=== PATIENT | male | born 1945 | race Caucasian/White ===

== ENCOUNTER 2017-04-03 14:27 | Inpatient (IN) | payer OTHER ==
[2017-04-03] MEDS ORDERED: ONDANSETRON 4 MG/2 ML VIAL IVP ONE (14:55)
[2017-04-03] MEDS ORDERED: HYDROmorphONE/DILAUDID 1 MG/ML INJ IVP ONE ×2 (14:55→15:51)
[2017-04-03] MEDS ORDERED: NS 1,000 ML IV ONE (14:55)
[2017-04-03 15:29] LABS: % IMMATURE GRANULYOCYTES 0.3 % (0.0-1.1); ABSOLUTE IMMATURE GRANULOCYTES 0.04 10^3/uL (0.00-0.10); ADD DIFF? NO; ADD MORPH? NO; ADD SCAN? NO; ATYPICAL LYMPHOCYTE FLAG 0 (0-99); FRAGMENT RBC FLAG 10 (0-99); HEMATOCRIT 41.7 % (40.0-51.0); HEMOGLOBIN 15.2 g/dL (13.7-17.5); LEFT SHIFT FLG 0 (0-99); LIPEMIA HEMOLYSIS FLAG 90 (0-99); MEAN CELL HEMOGLOBIN 32.1 pg (27.9-34.1); MEAN CELL HEMOGLOBIN CONCENTR. 36.5 g/dL (32.4-36.7); MEAN CELL VOLUME 88.2 fL (81.5-99.8); MEAN PLATELET VOLUME 9.7 fL (8.7-11.7); PLATELET CLUMPS FLAG 0 (0-99); PLATELET COUNT 210 10^3/uL (150-400); RED BLOOD CELL COUNT 4.73 10^6/uL (4.40-6.38); RED CELL DISTRIBUTION WIDTH 12.6 % (11.5-15.2)
[2017-04-03] MEDS ORDERED: HYDROmorphONE/DILAUDID 1 MG/ML INJ ONE (15:47)
[2017-04-03 15:52] LABS: ANION GAP 14 mEq/L (8-16); CARBON DIOXIDE 18 mEq/l (22-31); CHLORIDE 108 mEq/L (97-110); CREATININE 1.1 mg/dL (0.7-1.3); GLOMERULAR FILTRATION RATE > 60; GLUCOSE 149 mg/dL (70-100); POTASSIUM 3.9 mEq/L (3.5-5.2); SODIUM 140 mEq/L (134-144)
[2017-04-03] MEDS ORDERED: KETOROLAC 15 MG/1 ML SDV IVP ONE (15:58)
[2017-04-03 16:17] LABS: COLOR YELLOW; LEUKOCYTE ESTERASE,URINE NEGATIVE (NEGATIVE); NITRITE,URINE NEGATIVE (NEGATIVE)
[2017-04-03 16:24] LABS: BACTERIA TRACE /hpf (NONE SEEN); MUCUS TRACE /lpf (NONE-1+); RBC,URINE 50-182 /hpf (0-3)
--- NOTE | 2017-04-03 16:50 | EDPHY ---
H & P Stated Complaint: Right flank and hematuria since 04/02/17. - Personal History Current Tetanus Diphtheria and Acellular Pertussis (TDAP): Yes - Medical/Surgical History Hx Asthma: No Hx Chronic Respiratory Disease: No Hx Diabetes: No Hx Cardiac Disease: No Hx Renal Disease: No Hx Cirrhosis: No Hx Alcoholism: No Hx HIV/AIDS: No Hx Splenectomy or Spleen Trauma: No Other PMH: Denies - Social History Smoking Status: Never smoked Time Seen by Provider: 04/03/17 14:48 HPI/ROS: Chief complaint: Right flank pain History of present illness: This is a 71-year-old male who presents to the emergency department for right flank pain. Patient reports the onset of symptoms over the last day. Pain is sharp, nonradiating. He denies precipitating factors. He denies alleviating or aggravating factors. He has had associated blood in his urine. No associated fever, no abdominal pain, no nausea, vomiting or diarrhea. He has never had similar. Review of systems: A 10 point review of systems was obtained and other than described above was negative (Onofre Chicas) - Physical Exam Exam: General Appearance: Alert, appears in pain. Eyes: Pupils equal and round no pallor or injection. ENT, Mouth: Mucous membranes moist. Respiratory: There are no retractions, lungs are clear to auscultation. Cardiovascular: Regular rate and rhythm. Gastrointestinal: Abdomen is soft and non tender, no masses, bowel sounds normal. Genitourinary: No CVA tenderness Neurological: Alert and oriented x4. Strength and sensation intact and symmetrical. Skin: Warm and dry, no rashes. Musculoskeletal: Neck is supple non tender. Extremities are symmetrical, full range of motion. Psychiatric: Patient is oriented X 3, there is no agitation. (Onofre Chicas) Constitutional: Initial Vital Signs Temperature (C) 36.8 C 04/03/17 14:29 Heart Rate 61 04/03/17 14:29 Respiratory Rate 18 04/03/17 14:29 Blood Pressure 206/96 H 04/03/17 14:29 O2 Sat (%) 96 04/03/17 14:29 O2 Delivery Mode Room Air Allergies/Adverse Reactions: No Known Allergies Allergy (Unverified 07/09/15 18:11) Home Medications: Medication Instructions Recorded Ibuprofen [Motrin (*)] 400 mg PO Q6H PRN 04/03/17 Medical Decision Making - Diagnostics Imaging: Discussed imaging studies w/ house calls nurse practitioner Radiologist - Diagnostics Imaging Results: Imaging Impressions Abdomen/Pelvis CT 04/03/17 14:56 Impression: 1. Large right renal mass replacing the upper half of the kidney, representing renal cell carcinoma until otherwise proven. 2. It is indeterminate whether the renal vein is thrombosed or involved. There is a moderate amount of hilar inflammation and stranding. 3. Noncalcified pulmonary nodules highly suggestive of metastatic disease. 4. No obvious renal stones or ureteral stones or obstructive uropathy otherwise. 5. Sigmoid diverticulosis. 6. Repeating the study with IV contrast, for chest, abdomen, and pelvis is suggested. Findings and recommendations discussed with Onofre Chicas PA-C at 1633 hour, 04/03. Final report concurs with initial preliminary interpretation. Attention: This examination does not use radiographic contrast, and as such, provides only a limited evaluation of the abdomen, pelvis, and retroperitoneum. If there is further clinical suspicion for pathological conditions, a complete CT evaluation of the abdomen and pelvis utilizing intravenous, oral, and rectal contrast should be considered. Chest CT 04/03/17 16:32 Impression: 1. 2 noncalcified pulmonary nodules in the right lower lobe and left lower lobe as above described, still concerning for metastatic disease given their appearance. 2. Lytic lesion in central T11 that probably represents a hemangioma. Similarly , there is a smaller lesion to the right vertebral body of T5. No definite metastatic bony involvement. Findings and recommendations discussed with Onofre Chicas PA-C at 1800 hour, 04/03. Final report concurs with initial preliminary interpretation. Abdomen CT 04/03/17 16:33 Impression: 1. Large upper pole right renal mass consistent with renal cell carcinoma. 2. Delayed excretion from the right kidney, likely due to edema. 3. The edema may be caused by a combination of two factors: Lack of excretion out of the right renal collecting system, and narrowing of the right draining renal vein. 4. No evidence for tumor invasion into the renal vein or IVC. 5. Tumor invasion into the collecting system is not excluded. 6. No evidence for significant adenopathy. No bony metastasis is evident on this study. Findings and recommendations discussed with Onofre Chicas PA-C at 1800 hour, . Final report concurs with initial preliminary interpretation. ED Course/Re-evaluation: The patient is seen in conjunction with my secondary supervising physician Dr. Pratima May. Patient presents to the emergency department with right flank pain and hematuria. Pain is controlled with Dilaudid and Toradol. Ultimately CT scan is concerning for a renal cancer with possible renal vein thrombosis, questionable lymphadenopathy and possible metastasis to the lungs. Patient will be admitted to the hospitalist service by Dr. Pasha Mckeon. I have also consulted Hematology/Oncology Dr. Aguilar. We will pursue a CT of the chest/abdomen/pelvis with IV contrast to further evaluate. The plan has been discussed with the patient who voiced understanding and agreement with it. ( Onofre Chicas) Differential Diagnosis: Included but not limited to urinary tract infection, kidney stone, malignancy, colitis, appendicitis, diverticulitis (Onofre Chicas) Other Provider: I have evaluated and participated in the management of this patient. My co- signature indicates that I have reviewed this chart and that I agree with the findings and the plan of care as documented. My personal history and physical findings include: 71-year-old male with hematuria and back pain who was referred to the emergency department by his primary care physician, Dr. Arango. On exam is lungs are clear, heart is regular rate and rhythm, abdomen is soft, nontender, nondistended. No palpable masses. Imaging reveals a renal mass suspicious for renal cell carcinoma. Chest CT reveals pulmonary nodule suspicious for metastatic disease. I reviewed the imaging. I spoke with the patient and his about these findings. He is being admitted for further evaluation and possible biopsy of the pulmonary nodules. (Pratima May) - Data Points Laboratory Results: Laboratory Results 04/03/17 15:14 04/03/17 15:14 04/03/17 04/03/17 04/03/17 16:08 15:14 15:14 WBC 13.19 10^3/uL H 10^3/uL (3.80-9.50) RBC 4.73 10^6/uL 10^6/uL (4.40-6.38) Hgb 15.2 g/dL g/dL (13.7-17.5) Hct 41.7 % % (40.0-51.0) MCV 88.2 fL fL (81.5-99.8) MCH 32.1 pg pg (27.9-34.1) MCHC 36.5 g/dL g/dL (32.4-36.7) RDW 12.6 % % (11.5-15.2) Plt Count 210 10^3/uL 10^3/uL (150-400) MPV 9.7 fL fL (8.7-11.7) Neut % (Auto) 83.9 % H % (39.3-74.2) Lymph % (Auto) 8.3 % L % (15.0-45.0) D[place]y % (Auto) 7.1 % % (4.5-13.0) Eos % (Auto) 0.2 % L % (0.6-7.6) Baso % (Auto) 0.2 % L % (0.3-1.7) Nucleat RBC Rel Count 0.0 % % (0.0-0.2) Absolute Neuts (auto) 11.05 10^3/uL H 10^3/uL (1.70-6.50) Absolute Lymphs (auto) 1.10 10^3/uL 10^3/uL (1.00-3.00) Absolute Monos (auto) 0.94 10^3/uL H 10^3/uL (0.30-0.80) Absolute Eos (auto) 0.03 10^3/uL 10^3/uL (0.03-0.40) Absolute Basos (auto) 0.03 10^3/uL 10^3/uL (0.02-0.10) Absolute Nucleated RBC 0.00 10^3/uL 10^3/uL (0-0.01) Immature Gran % 0.3 % % (0.0-1.1) Immature Gran # 0.04 10^3/uL 10^3/uL (0.00-0.10) Sodium 140 mEq/L mEq/L (134-144) Potassium 3.9 mEq/L mEq/L (3.5-5.2) Chloride 108 mEq/L mEq/L (97-110) Carbon Dioxide 18 mEq/l L mEq/l (22-31) Anion Gap 14 mEq/L mEq/L (8-16) BUN 21 mg/dL mg/dL (7-23) Creatinine 1.1 mg/dL mg/dL (0.7-1.3) Estimated GFR > 60 Glucose 149 mg/dL H mg/dL (70-100) Calcium 10.0 mg/dL mg/dL (8.5-10.4) Urine Color YELLOW Urine Appearance HAZY Urine pH 8.0 H (5.0-7.5) Ur Specific [place] 1.012 (1.002-1.030) Urine Protein NEGATIVE (NEGATIVE) Urine Ketones NEGATIVE (NEGATIVE) Urine Blood 3+ H (NEGATIVE) Urine Nitrate NEGATIVE (NEGATIVE) Urine Bilirubin NEGATIVE (NEGATIVE) Urine Urobilinogen NEGATIVE EU EU (0.2-1.0) Ur Leukocyte Esterase NEGATIVE (NEGATIVE) Urine RBC 50-182 /hpf H /hpf (0-3) Urine WBC 3-5 /hpf H /hpf (0-3) Ur Epithelial Cells NONE SEEN /lpf /lpf (NONE-1+) Urine Bacteria TRACE /hpf H /hpf (NONE SEEN) Urine Mucus TRACE /lpf /lpf (NONE-1+) Urine Glucose NEGATIVE (NEGATIVE) Medications Given: Melatonin (Melatonin) 6 mg PO HS [facility] Stop: 09/30/17 20:59 Last Admin: 04/03/17 21:15 Dose: 6 mg Discontinued Medications Hydromorphone HCl (Dilaudid) 0.5 mg IVP EDNOW ONE Stop: 04/03/17 14:56 Last Admin: 04/03/17 15:04 Dose: 0.5 mg Hydromorphone HCl (Dilaudid) 1 mg IVP EDNOW ONE Stop: 04/03/17 15:52 Last Admin: 04/03/17 15:51 Dose: 1 mg Sodium Chloride (Ns) 1,000 mls @ 0 mls/hr IV EDNOW ONE; Wide Open PRN Reason: Protocol Stop: 04/03/17 14:56 Last Admin: 04/03/17 15:04 Dose: 1,000 mls Ketorolac Tromethamine (Toradol) 15 mg IVP EDNOW ONE Stop: 04/03/17 15:59 Last Admin: 04/03/17 16:30 Dose: 15 mg Ondansetron HCl (Zofran) 4 mg IVP EDNOW ONE Stop: 04/03/17 14:56 Last Admin: 04/03/17 15:04 Dose: 4 mg Departure - Departure Disposition: Home, Routine, Self-Care Clinical Impression: Renal cancer Qualifiers: Laterality: right Qualified Code(s): C64.1 - Malignant neoplasm of right kidney , except renal pelvis Condition: Fair
[2017-04-03] MEDS ORDERED: IOPAMIDOL (ISOVUE-300) 100 ML BTL ONE (16:53)
[2017-04-03] MEDS ORDERED: ONDANSETRON 4 MG/2 ML VIAL IVP PRN (20:11)
[2017-04-03] MEDS ORDERED: ACETAMINOPHEN 325 MG TAB PO PRN (20:11)
[2017-04-03] MEDS ORDERED: IBUPROFEN 200 MG TAB PO PRN (20:13)
[2017-04-03] MEDS ORDERED: HYDROmorphone HCL/NS/PF 0.4 MG/2 ML SYR IVP PRN (20:17)
[2017-04-03] MEDS ORDERED: TEMAZEPAM 15 MG CAP PO PRN (20:17)
[2017-04-03] MEDS ORDERED: MELATONIN 3 MG TAB PO SCH (21:00)
[2017-04-03] MEDS: MELATONIN 3 MG TAB PO SCH (21:15)
--- NOTE | 2017-04-03 21:41 | GHP ---
[f rep st] HISTORY AND PHYSICAL DATE OF ADMISSION: 04/03/2017 CHIEF COMPLAINT: Hematuria and right flank pain. HISTORY OF PRESENT ILLNESS: A 71-year-old man who saw his primary care physician today for hematuria . It has also been associated with some intermittent right flank pain. He also describes some back pain which has been present for a few months, began 8 months ago. It was diagnosed as a musculoskele anna strain. He does not smoke though he does occasionally smoke marijuana. PAST MEDICAL/SURGICAL HISTORY: 1. Musculoskeletal pain. 2. Pectus excavatum, status post surgery. MEDICATIONS: Please see medication reconciliation. ALLERGIES: No known drug allergies. FAMILY HISTORY: No cancer. He does have heart disease in his history. SOCIAL HISTORY: He occasionally smokes marijuana. 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 REVIEW OF SYSTEMS: A 10-point review of systems is conducted and is negative except per HPI. PHYSICAL EXAMINATION: VITAL SIGNS: Blood pressure 157/84, heart rate 75, respiration rate 18, satur ating 93% on room air. Temperature is 36.3. GENERAL: The patient is a pleasant man who is resting comfortably in no acute distress. HEENT: Normocephalic, atraumatic. CARDIOVASCULAR: Regular rate and rhythm. No murmurs, rubs, or gallops. PULMONARY: Lungs clear to auscultation bilaterally. ABD OMEN: Soft, nontender, nondistended. He does have a midline incision. SKIN: No rash. GENITOURINA RY: No Navarro. NEUROLOGIC: Examination shows him to be alert and oriented x3. He is moving all ext remities. PSYCHIATRIC: Normal mood and affect. LABORATORY DATA: Bicarb is 18, urinalysis shows 3+ blood. White count is 13.19. DATA: 1. I discussed this with Onofre Chicas. 2. I reviewed his abdomen CT and chest CT. There were some pulmonary nodules concerning for metasta tic disease. He does have a lesion on his right kidney concerning for renal cell carcinoma. IMPRESSION AND PLAN: This is a 71-year-old man with likely new diagnosis of renal cell carcinoma: I have discussed this diagnosis with him. I think he likely needs a biopsy of the pulmonary nodules t o determine stage and thus guide treatment. I have placed a call to Dr. Aguilar (who has previously been consulted by the emergency department) to discuss possible CT-guided biopsy of one of these nod ules. They are small and may be difficult to biopsy, however. I have not heard back, however, if mehran mejia is in agreement with this. I will order a biopsy. Otherwise she will consult and help guide treat ment. I did have a long discussion with both him as well and regarding the different potential treat ment courses. /[id number]/MODL
[2017-04-04 06:09] LABS: % IMMATURE GRANULYOCYTES 0.6 % (0.0-1.1); ABSOLUTE IMMATURE GRANULOCYTES 0.09 10^3/uL (0.00-0.10); ADD DIFF? NO; ADD MORPH? NO; ADD SCAN? NO; ATYPICAL LYMPHOCYTE FLAG 0 (0-99); FRAGMENT RBC FLAG 0 (0-99); HEMATOCRIT 42.9 % (40.0-51.0); HEMOGLOBIN 14.9 g/dL (13.7-17.5); LEFT SHIFT FLG 0 (0-99); LIPEMIA HEMOLYSIS FLAG 90 (0-99); MEAN CELL HEMOGLOBIN 31.8 pg (27.9-34.1); MEAN CELL HEMOGLOBIN CONCENTR. 34.7 g/dL (32.4-36.7); MEAN CELL VOLUME 91.7 fL (81.5-99.8); MEAN PLATELET VOLUME 9.8 fL (8.7-11.7); PLATELET CLUMPS FLAG 0 (0-99); PLATELET COUNT 188 10^3/uL (150-400); RED BLOOD CELL COUNT 4.68 10^6/uL (4.40-6.38); RED CELL DISTRIBUTION WIDTH 12.8 % (11.5-15.2)
[2017-04-04 06:18] LABS: ALANINE AMINOTRANSFERASE 32 IU/L (21-72); ALBUMIN 3.8 g/dL (3.5-5.0); ALKALINE PHOSPHATASE 70 IU/L (38-126); ANION GAP 13 mEq/L (8-16); ASPARTATE AMINOTRANSFERASE 27 IU/L (17-59); BILIRUBIN,TOTAL 0.8 mg/dL (0.1-1.4); CALCIUM 9.4 mg/dL (8.5-10.4); CARBON DIOXIDE 21 mEq/l (22-31); CHLORIDE 106 mEq/L (97-110); CREATININE 1.2 mg/dL (0.7-1.3); GLOMERULAR FILTRATION RATE 60; GLUCOSE 109 mg/dL (70-100); LACTATE DEHYDROGENASE 630 IU/L (313-618); POTASSIUM 4.1 mEq/L (3.5-5.2); SODIUM 140 mEq/L (134-144); TOTAL PROTEIN 6.3 g/dL (6.3-8.2)
[2017-04-04] MEDS: oxyCODONE IR 5 MG TAB PO PRN ×2 (08:39→14:16)
[2017-04-04 08:40] LABS: PLATELET COUNT 184 10^3/uL (150-400)
[2017-04-04 08:57] LABS: INR 1.06 (0.83-1.16); PROTIME(PATIENT) 13.7 SEC (12.0-15.0)
[2017-04-04 08:58] LABS: APTT 28.8 SEC (23.0-38.0); FIBRINOGEN 432 mg/dL (214-456)
[2017-04-04] MEDS ORDERED: MAGNESIUM HYDROXIDE 30 ML UDCUP PO PRN (12:34)
[2017-04-04] MEDS: SENNOSIDES/DOCUSATE SODIUM TAB PO SCH (13:02)
--- NOTE | 2017-04-04 14:07 | HOSPPROG ---
Hospitalist Progress Note Assessment/Plan: This 71-year-old male presenting with hematuria and right flank pain found to have # suspected right renal cell carcinoma # pulmonary nodules too small to biopsy per Dr. Martin Plan: -discussed case with Dr. Aguilar who is on-call for oncology [place] see the patient later today. I also have a call into Dr. Palacio from Urology to discuss nephrectomy. Will change to inpatient status given you will not need further hospitalization for nephrectomy. DVT prophylaxis is contraindicated in light of his hematuria Subjective: Flank pain is controlled with oxycodone. His hematuria is improving. he denies any other acute complaints Objective: Vital Signs Temp Pulse Resp BP Pulse Ox 36.8 C 83 18 171/102 H 96 04/04/17 12:55 04/04/17 12:55 04/04/17 12:55 04/04/17 12:55 04/04/17 12:55 Laboratory Results 04/04/17 08:13 04/04/17 05:35 PT 13.7 SEC (12.0-15.0) 04/04/17 08:13 INR 1.06 (0.83-1.16) 04/04/17 08:13 - Physical Exam Constitutional: no apparent distress, appears nourished, not in pain Ears, Nose, Mouth, Throat: moist mucous membranes, hearing normal, ears appear normal, no oral mucosal ulcers Cardiovascular: regular rate and rhythym, no murmur, rub, or gallop Respiratory: no respiratory distress, no rales or rhonchi, clear to auscultation ICD10 Worksheet Patient Problems: Problems Problem Status Onset Renal cancer Acute
[2017-04-04] MEDS: ONDANSETRON DISINTEGRATING 4 MG TAB PO PRN ×2 (14:15→21:35)
--- NOTE | 2017-04-04 14:23 | PDMN ---
Medical Necessity Medical necessity: change to IP; los>2mn for suspected R renal cell CA and small pulmonary nodules; requires onc and urology consults, further hospitalization for nephrectomy; per order and H&P 04/04/17
--- NOTE | 2017-04-04 14:50 | GCON ---
[f rep st] CONSULTATION NEW PATIENT CONSULTATION. DATE OF CONSULTATION: 04/04/2017 REFERRING PHYSICIAN: Gal Webber DO REASON FOR CONSULTATION: Hematuria, right flank pain and discovery of a right renal mass. HISTORY OF PRESENT ILLNESS: The patient is a 71-year-old gentleman in relatively good health, who wa s seen by his primary care physician yesterday for right flank pain and hematuria. He reports that jak mejia had some hematuria a couple of months ago but this disappeared but he started having persistent hem aturia for the last 3 days. After he started to experience some flank pain, which was unremitting, jak mejia presented to his primary care physician's office. He was sent for imaging and had an abdomen/pelvi s CT done yesterday on 04/03/2017. I have reviewed the images myself which showed a large renal mass replacing the upper half of the kidney, 9.2 cm in its greatest dimension. Radiographically, this re presents renal cell carcinoma until otherwise proven. Indeterminate whether the renal vein was throm bosed or involved. There was a moderate amount of hilar inflammation and stranding. He has noncalcif ied pulmonary nodules, highly suggestive of metastatic disease but overall, these are few and very sm all. No obvious other metastatic disease was noted. Bones appear normal for patient's age. The patient reports some musculoskeletal pain under his right scapula from a few months ago but other amado denies any new issues. REVIEW OF SYSTEMS: As per HPI. Otherwise, denies any significant weight loss, nausea, vomiting, con stipation, diarrhea. Denies neurologic symptoms. He denies bone pain, just has muscular strain as de scribed above. PAST MEDICAL HISTORY: 1. Musculoskeletal pain under right scapula. 2. Pectus excavatum status post surgery. MEDICATIONS: Reviewed med rec. ALLERGIES: Reviewed med rec. FAMILY HISTORY: No cancer, heart disease in family. SOCIAL HISTORY: He occasionally smokes marijuana. He develops next generation internet tools. PHYSICAL EXAM: VITAL SIGNS: Today, shows a blood pressure 171/102, his pulse is 83, respiration rat e 18, O2 saturation 96% on room air. The temperature is 36.8. GENERAL: A 71-year-old gentleman, lo oks younger than his stated age, not in acute distress. HEENT: Anicteric, oropharynx is clear. Willian e poor dentition. HEART: Regular rate and rhythm. LUNGS: Clear to auscultation bilaterally. ABDO MEN: Somewhat soft. He does have some guarding on the right with possible right-sided mass. His kennedy er is not enlarged. Bowel sounds are positive. Right flank also feel a fullness. LOWER EXTREMITIES : No edema. LABS: White blood cell count 14.2, hemoglobin 14.9, hematocrit 42.9, platelet count of a 188,000. C oags are within normal limits. Sodium 140, BUN 20, creatinine 1.2, total bilirubin 0.8, LDH is eleva sharon at 630. His urinalysis shows 3+ blood, trace bacteria. ASSESSMENT AND PLAN: A 71-year-old gentleman with the above-mentioned past medical history, now pres enting with what appears to be renal cell carcinoma of the right upper kidney. CT chest demonstrates some very small noncalcified pulmonary nodules. At this time, he has no other evidence of metastati c disease. Today, I spent the majority of time going over patient's imaging, potential diagnosis and prognosis. It does appear that he is a stage IV disease. I would recommend a bone scan and a brain MRI to comp lete his imaging. I am not inclined to order a PET-CT as urothelial carcinoma, tends to not demonstr ate significant PET avidity. At this point, I do think he demonstrates a need for cytoreductive neph rectomy given the pain and hematuria he is experiencing and the relatively small amount of distant di sease. I plan to discuss with Radiology the number and size of the pulmonary nodules that are noted although I only see a couple. He may be a candidate for ablative techniques to the lung lesions and then first-line therapy for kidney cancer. If the number of pulmonary nodules are too great and it i s felt that toxicity would be too much with treatment of radiation or surgery to these areas, could c ertainly start him on first line tyrosine kinase inhibitor status post nephrectomy. The patient does have some high risk features including high white blood cell count as well as elevated LDH. Urology consult has been placed and will order bone scan and MRI brain today to complete staging. Onc e we get tissue confirmation, can move forward with further treatment recommendations /[id number]/MODL
[2017-04-04] MEDS ORDERED: GADOBUTROL 10 ML VIAL IVP ONE (15:14)
--- NOTE | 2017-04-04 16:31 | ASMTCASEMG ---
Living Arrangements What is your living Answers: Alone arrangement? Who do you live with? Type Of Residence What kind of residence do Answers: House you live in? Stairs in Home Answers: Yes Environment Case Management Evaluation Functional: Able to Answers: No Notes: nephrectomy return Home with Prior Level of Function/Care Discharge Plan Comments Coordination Status Comments Notes: Spoke with patient to talk about his feelings and plans regarding his new diagnosis of kidney cancer. He said that he thought he had a kidney stone when he went to the docitor yesterday. He said that he had pain last night that was in his experience an 11 out of 10. He said he is anxious to talk with Dr. Arevalo to have some idea of what lies ahead. This C/M told him that we will be here to support him and help him to navigate the systems as he is more clear about what his needs may be. Case Management will follow. Date Signed: 04/04/2017 04:30 PM Electronically Signed By:BUZZ Carrera
--- NOTE | 2017-04-04 17:29 | SOAPPROG ---
PATEL Progress Note Assessment/Plan: Assessment:Renal cancer Acute reviewed CAT scan and suggest nephrectomy. Plan: will see if desired, reviewed CAT with pt 04/04/17 17:29 Subjective: discussed renal mass Objective: Vital Signs Temp Pulse Resp BP Pulse Ox 36.7 C 78 18 152/89 H 95 04/04/17 17:01 04/04/17 17:01 04/04/17 17:01 04/04/17 17:01 04/04/17 17:01 04/03/17 04/04/17 04/05/17 05:59 05:59 05:59 Intake Total 700 Balance 700 PT 13.7 SEC (12.0-15.0) 04/04/17 08:13 INR 1.06 (0.83-1.16) 04/04/17 08:13 Physical Exam - Physical Exam General Appearance: alert ICD10 Worksheet Patient Problems: Problems Problem Status Onset Renal cancer Acute
[2017-04-04] MEDS: MELATONIN 3 MG TAB PO SCH (21:24)
--- NOTE | 2017-04-05 00:48 | SOAPPROG ---
SOAP Progress Note Assessment/Plan: Assessment: 1. ~ 9 cm right upper pole posterior enhancing right renal mass. 2. Recent gross hematuria and right flank pain: most likely due to recent bleeding from renal mass. Plan: 1. Medical management for his intermittent right flank pain. 2. Arrangements will be made for open right radical nephrectomy in the near future, hopefully next week. In the meantime, he can be discharged on oral narcotics once deemed appropriate by the hospitalist service. My office will coordinate surgery scheduling with the patient by phone. See full dictated consult note (#[id number]). Objective: Vital Signs Temp Pulse Resp BP Pulse Ox 36.9 C 81 16 162/92 H 92 04/04/17 19:48 04/04/17 19:48 04/04/17 19:48 04/04/17 19:48 04/04/17 19:48 04/03/17 04/04/17 04/05/17 05:59 05:59 05:59 Intake Total 700 Balance 700 PT 13.7 SEC (12.0-15.0) 04/04/17 08:13 INR 1.06 (0.83-1.16) 04/04/17 08:13 ICD10 Worksheet Patient Problems: Problems Problem Status Onset Renal cancer Acute
[2017-04-05] MEDS: oxyCODONE IR 5 MG TAB PO PRN ×4 (04:42→16:10)
--- NOTE | 2017-04-05 06:24 | GCON ---
[f rep st] CONSULTATION UROLOGY CONSULTATION DATE OF CONSULTATION: 04/04/2017 REFERRING PHYSICIAN: Hospitalist Service REASON FOR CONSULTATION: Large abnormal right renal mass. HISTORY: This is a 71-year-old gentleman who started experiencing gross hematuria on this past Monday that not long afterwards was associated with severe right-sided flank pain. The flank pain was intermittent thereafter but persisted to the point that he presented to the emergency room on Monday afternoon. Noncontrast CT scan was initially performed, which revealed evidence suggestive of a right renal mass. This was confirmed on subsequent contrast CT scan. The patient was admitted for further management thereafter. Since admission, the patient has had intermittent episodes of right-sided flank pain that have been fairly well controlled with narcotics. His frequency and intensity of pain have been diminishing over the day today. He denies any associated fevers, flu-like symptoms, dysuria, prior gross hematuria, nor prior history of urinary tract infections. PAST MEDICAL HISTORY: Healthy. PAST SURGICAL HISTORY: Bilateral laparoscopic inguinal herniorrhaphy 2015, pectus excavatum repair many years ago. ADMISSION MEDICATION: Ibuprofen p.r.n. MEDICATION ALLERGIES: None known. FAMILY HISTORY: Not contributory. SOCIAL HISTORY: The patient is single and lives in the [facility]. He denies use of cigarettes or alcohol. He does smoke marijuana periodically. REVIEW OF SYSTEMS: He has been dealing with upper back pain, just below the cervical region, for the last several months, for which he has been receiving physical therapy. Otherwise unremarkable, other than mentioned above in the HPI and Past Medical History. PHYSICAL EXAMINATION: GENERAL: Well-developed, well-nourished white male lying supine in bed in no acute distress presently. VITAL SIGNS: Blood pressure 162/92, heart rate 81, respiratory rate 16, oxygen saturations 92% on room air, temperature 36.9 Celsius. Height 175 cm, weight 77 kg, BMI 25. HEENT : Normocephalic, atraumatic. NECK: Supple. HEART: Regular rate. CHEST: Unlabored respiratory pattern. ABDOMEN: Some fullness noted in the right upper quadrant. No evidence of significant tenderness. BACK: No flank tenderness on percussion. GENITALIA: Circumcised phallus with normal meatus in the proper position. Scrotal structures are unremarkable. EXTREMITIES: Warm without cyanosis, clubbing, nor edema. NEUROLOGICAL: He is alert and oriented. He answers all questions appropriately with normal mood and affect. VASCULAR: Normal femoral, dorsalis pedis, and posterior tibial pulses bilaterally. RADIOGRAPHIC STUDIES: Iodinated abdominopelvic CT scan: Upon my review, notable for an approximately 9 x 6 x 9 cm long right posterior upper-pole enhancing renal mass that is heterogeneous with central necrosis, no obvious perihilar adenopathy, no obvious renal vein or IVC thrombosis, no liver abnormalities appreciated. Chest CT: By report, notable for two pulmonary nodules, one measuring approximately 7 mm in the right lower lobe and another measuring approximately 10 mm in the left lower lobe. These are noncalcified. Brain MRI: By report, no evidence of metastatic disease. LABORATORY: 04/04 chemistry panel is essentially normal. Liver function tests are also normal. 04/04 INR 1.0. 04/04 CBC notable for white blood cell count 14 ,000; otherwise, normal. 04/03 urinalysis notable for 50-182 red blood cells per high-power field, otherwise unremarkable. IMPRESSION: 1. Sizeable enhancing heterogeneous right renal mass: Worrisome for renal cancer. 2. Gross hematuria with associated right flank pain: Gross hematuria is most likely related to bleeding from the tumor. Flank pain is likely as a result of clot passage with transient obstruction within the right ureter. There is also a possibility the right flank pain could be related to hemorrhage within the tumor. I had an extensive discussion with the patient today regarding his radiographic findings, specifically the renal mass. The high probability of cancer was discussed with the patient. It is possible he might have pulmonary metastatic disease, although these lesions are too small to definitively characterize and not amenable to percutaneous biopsy at this time. All aspects regarding therapeutic and diagnostic radical nephrectomy were reviewed in detail as well. Surgical approaches, open versus laparoscopic/robotic, were reviewed in detail as well. All of the patient's questions were answered to his apparent satisfaction. PLAN: 1. Continue analgesics and/or ibuprofen for pain control p.r.n. Avoid any anticoagulants. 2. The patient may be discharged whenever deemed appropriate by the hospitalist service. He is apparently scheduled for a whole-body bone scan on Monday. 3. My office will contact the patient and arrange for right open radical nephrectomy as soon as possible. Based on the size of this tumor, I do not believe it is ideally amenable to robotic nephrectomy. Thank you for this consultation. /[id number]/MODL MTDD
[2017-04-05] MEDS: SENNOSIDES/DOCUSATE SODIUM TAB PO SCH (07:51)
--- NOTE | 2017-04-05 11:16 | SOAPPROG ---
SOAP Progress Note Assessment/Plan: Assessment/Plan: 71 yo man admitted w flank pain and hematuria CT imaging demonstrates large R sided kidney mass, likely RCC Also w small pulmonary nodules concerning for mets but too small to biospy ir characterize further Appreciate Dr Palacio - plan for R nephrectomy next week Even if metastatic dz, optimal candidate for cytoreductive nephrectomy Once have final path, can make further recommendations Consider following lung nodules vs ablative therapies MRI brain negative Bone scan pending today Will arrange follow up w [facility] doc in 1-2 weeks 04/05/17 11:14 Subjective: No acute events Objective: Vital Signs Temp Pulse Resp BP Pulse Ox 36.6 C 81 18 164/100 H 94 04/05/17 07:57 04/05/17 07:57 04/05/17 07:57 04/05/17 09:44 04/05/17 07:57 04/04/17 04/05/17 04/06/17 05:59 05:59 05:59 Intake Total 700 Balance 700 PT 13.7 SEC (12.0-15.0) 04/04/17 08:13 INR 1.06 (0.83-1.16) 04/04/17 08:13 Gen - NAD HEENT - anicteric CV - RRR Chest - CTAB Ext - no edema ICD10 Worksheet Patient Problems: Problems Problem Status Onset Renal cancer Acute
[2017-04-05 11:26] VITALS: BP 157/92; PULSE 87; RESP 14; TEMP 98.7; O2SAT 92
--- NOTE | 2017-04-05 16:45 | ASMTCMCOM ---
CM Note CM Note Notes: Pt to DC home today. Plan is to f/u with [facility] Oncologist and to have a nephrectomy with Dr Ramos next week. Ta;led with pt and his about adjustment to diagnosis. Discussing talking with his employer and telling friends and family. Let pt know anout resources such as support groups and integrative therapy. Made a red lipstick request for pt. Date Signed: 04/05/2017 04:45 PM Electronically Signed By:Gayathri Vaughan LCSW
--- NOTE | 2017-04-06 00:12 | GDS ---
[f rep st] DISCHARGE SUMMARY DISCHARGE DIAGNOSES: 1. Right flank pain. Found to have a right-sided kidney mass, most likely due to renal cell carcino ma. 2. Small pulmonary nodules. CONSULTANTS: 1. Dr. Farrah Aguilar, Oncology. 2. Dr. Padmini Palacio, Urology. HOSPITAL COURSE AND STAY BY PROBLEM: Flank pain: The patient presented to the hospital with flank p ain where he was found to have a large right renal mass which was thought to most likely represent a renal cell carcinoma. He was seen by Dr. Aguilar who ordered a brain MRI that was negative for mass . Initially in the ER, he had a CT of the abdomen and pelvis. The chest CT did show some small pulm onary nodules which were not amenable to biopsy per Dr. Martin. On date of discharge, the bone scan had been done and is currently pending. On hospital day #1, Dr. Palacio was consulted from Urology. He is recommending open nephrectomy which will be done later next week. PHYSICAL EXAM: VITAL SIGNS: On day of discharge, blood pressure 137/92, pulse of 87, respiratory ra te 14, O2 saturation 92% on room air. Temperature afebrile. GENERAL: No acute distress. He does n ot appear to be in pain. PERTINENT LABS AND STUDIES DONE: Bone scan done 04/05/2017, results are pending. Brain MRI done , refer to report. CT of the chest, abdomen, and pelvis done 04/03/2017, refer to report. DISCHARGE MEDICATIONS: Please refer to discharge medication reconciliation in [facility] for full deta ils. Below is a preliminary list: Oxycodone 5-10 mg p.o. q.4-6 hours p.r.n. pain; [id number] Tylenol to be used as directed; Seno jeannie-S 1-2 tabs p.o. daily. DISCHARGE INSTRUCTIONS: The patient will be discharged from the hospital where he should follow up w emerald Aguilar at Oncology as well as with Dr. Palacio as scheduled. /[id number]/MODL
--- NOTE | 2017-04-06 09:12 | ASDISCHSUM ---
Discharge Information Plan Status:Has needs-TBD Medically Cleared to Leave: Discharge Date:04/05/2017 04:45 PM CM D/C Disposition: ADT D/C Disposition:Home, Routine, Self-Care Projected Discharge Date:04/05/2017 04:45 PM Transportation at D/C: Discharge Delay Reason: Follow-Up Date:04/05/2017 04:45 PM Discharge Slot: Final Diagnosis: Placement Information Patient Contact Information Contact Name:SHERIN Relationship:Other Address: Work Phone: [facility]: [facility] Phone: State/Zip Code: Email: Financial Information Financial Class: Primary Plan Desc:MEDICARE INPATIENT Primary Plan Number:[id number] Secondary Plan Desc:[facility] Secondary Plan Number:[id number] Assessment Information [facility] Initial CM Assessment Living Arrangements What is your living Answers: Alone arrangement? Who do you live with? Type Of Residence What kind of residence do Answers: House you live in? Stairs in Home Answers: Yes Environment Case Management Evaluation Functional: Able to Answers: No Notes: nephrectomy return Home with Prior Level of Function/Care Discharge Plan Comments Coordination Status Comments Notes: Spoke with patient to talk about his feelings and plans regarding his new diagnosis of kidney cancer. He said that he thought he had a kidney stone when he went to the [facility] yesterday. He said that he had pain last night that was in his experience an 11 out of 10. He said he is anxious to talk with Dr. Arevalo to have some idea of what lies ahead. This C/M told him that we will be here to support him and help him to navigate the systems as he is more clear about what his needs may be. Case Management will follow. Date Signed: 04/04/2017 04:30 PM Electronically Signed By:BUZZ Carrera [facility] CM Progress Note CM Note CM Note Notes: Pt to DC home today. Plan is to f/u with [facility] Oncologist and to have a nephrectomy with Dr Ramos next week. Ta;led with pt and his about adjustment to diagnosis. Discussing talking with his employer and telling friends and family. Let pt know anout resources such as support groups and integrative therapy. Made a red lipstick request for pt. Date Signed: 04/05/2017 04:45 PM Electronically Signed By:Gayathri Vaughan LCSW Intervention Information Intervention Type:*Incorrect Registration Date of Service:04/04/2017 10:35 AM Patient Type:Inpatient Staff Member:TITO Cantu, Shantelle Hours: Discipline: Severity: Comment: Intervention Type:*Occurence 72 Date of Service:04/03/2017 06:15 PM Patient Type:Inpatient Staff Member:TITO Montejo, Katarzyna Hours: Discipline: Severity: Comment:
== END 2017-04-05 16:45 | disposition home or self-care (01) | DRG 688 ==
LOC: INTOOBSV 17:06 → F1N 18:24 → OBSVTOIN 04-04 14:08
PROVIDERS: ADMIT Student in an Organized Health Care Education/Training Program; ATTEND Student in an Organized Health Care Education/Training Program
DX: C64.1 Malignant neoplasm of right kidney, except renal pelvis (principal); R91.8 Other nonspecific abnormal finding of lung field
CPT/HCPCS: 96374; A9503; A9585; G0378; J1170; J1885; J2405; Q9967

== ENCOUNTER 2017-04-10 14:00 | Inpatient (IN) | payer OTHER ==
[2017-04-13] MEDS ORDERED: ceFAZolin 2 GM/DEXTROSE 100 ML IV ONE (09:54)
[2017-04-13] MEDS ORDERED: LR 1,000 ML IV ONE (10:02)
[2017-04-13] MEDS ORDERED: fentaNYL 250 MCG/5 ML INJ ONE (10:21)
[2017-04-13] MEDS ORDERED: PROPOFOL 200 MG/20 ML VIAL ONE (10:21)
[2017-04-13] MEDS ORDERED: MIDAZOLAM 2 MG/2 ML VIAL ONE (10:21)
[2017-04-13] MEDS ORDERED: LIDOCAINE 2% 5 ML SDV ONE (10:26)
[2017-04-13] MEDS ORDERED: ROCURONIUM 100 MG/10 ML VIAL ONE (10:28)
[2017-04-13] MEDS ORDERED: BUPIVACAINE 0.25% 30 ML SDV ONE ×2 (10:31→15:52)
--- NOTE | 2017-04-13 10:31 | PDHPUP ---
History & Physical Update H&P update statement: This history and physical update is based on an assessment of the patient which was completed after admission or registration (within 24 hours), but prior to the surgery/procedure. H&P update: no change in patient's condition since H&P completed
[2017-04-13] MEDS ORDERED: MANNITOL 20% 100 GM/500 ML BAG IV ONE (10:51)
[2017-04-13] MEDS ORDERED: ONDANSETRON 4 MG/2 ML VIAL IVP PRN ×3 (12:13→14:01)
[2017-04-13] MEDS ORDERED: diphenhydrAMINE 25 MG CAP PO PRN (12:13)
[2017-04-13] MEDS ORDERED: NARCOTIC DRIP BAG-TOTAL ALL TYPES EP PRN (12:13)
[2017-04-13] MEDS ORDERED: NALOXONE HCL 0.4 MG/ML INJ IVP PRN ×2 (12:13→13:31)
[2017-04-13] MEDS ORDERED: METOCLOPRAMIDE 10 MG/2 ML VIAL IVP PRN (12:13)
[2017-04-13] MEDS ORDERED: HYDROmorphONE/DILAUDID 2 MG/ML INJ ONE (12:51)
[2017-04-13] MEDS ORDERED: SUGAMMADEX SODIUM 200 MG/2 ML VIAL IVP ONE (12:52)
[2017-04-13] MEDS ORDERED: ONDANSETRON 4 MG/2 ML VIAL ONE (12:52)
[2017-04-13] MEDS ORDERED: ALBUTEROL 3 ML DEYVIAL IH PRN (13:31)
[2017-04-13] MEDS ORDERED: ACETAMINOPHEN 500 MG TAB PO PRN (13:31)
[2017-04-13] MEDS ORDERED: PROMETHAZINE HCL 25 MG/ML INJ IVP PRN ×2 (13:31→14:01)
[2017-04-13] MEDS ORDERED: LR 500 ML IV PRN (13:31)
[2017-04-13] MEDS ORDERED: OXYCODONE/APAP 5/325 TAB PO PRN (13:31)
[2017-04-13] MEDS ORDERED: HYDROCODONE/APAP 5/325 TAB PO PRN (13:31)
--- NOTE | 2017-04-13 13:31 | POSTANESTH ---
Post Anesthetic Evaluation Cardiovascular Status: Normal, Stable Respiratory Status: Normal, Stable Level of Consciousness/Mental Status: Can Participate in Eval Pain Control: Adequate, Prn Tx Ordered Nausea/Vomiting Control: Adequate, Prn Tx Ordered Complications Possibly Related to Anesthesia: None Noted
--- NOTE | 2017-04-13 13:31 | PDANEPAE ---
ANE History of Present Illness renal cancer ANE Past Medical History - Cardiovascular History Hx Hypertension: Yes Hx Arrhythmias: No Hx Chest Pain: No Hx Coronary Artery / Peripheral Vascular Disease: No Hx CHF / Valvular Disease: No Hx Palpitations: No Cardiovascular History Comment: newly diagnosed HTN on Rx - Pulmonary History Hx COPD: No Hx Asthma/Reactive Airway Disease: No Hx Recent Upper Respiratory Infection: No Hx Oxygen in Use at Home: No Hx Sleep Apnea: No Sleep Apnea Screening Result - Last Documented: Negative - Neurologic History Hx Cerebrovascular Accident: No Hx Seizures: No Hx Dementia: No - Endocrine History Hx Diabetes: No - Renal History Hx Renal Disorders: Yes Renal History Comment: gross hematuria, right flank pain. 04/05/17 Dx with renal tumor - Liver History Hx Hepatic Disorders: No - Neurological & Psychiatric Hx Hx Neurological and Psychiatric Disorders: No - Cancer History Hx Cancer: No Cancer History Comment: R/O renal cancer 04/2017. Squamous cell right arm - Congenital Disorder History Hx Congenital Disorders: No - GI History Hx Gastrointestinal Disorders: No - Other Health History Other Health History: none - Chronic Pain History Chronic Pain: No - Surgical History Prior Surgeries: hernia repair 2016. Mohs procedure right arm. sternum excavatum repair 1965 ANE Review of Systems Review of systems is: negative Review of Systems: - Exercise capacity METS (RN): 5 METS ANE Patient History - Allergies Allergies/Adverse Reactions: No Known Allergies Allergy (Verified 04/12/17 15:14) - Home Medications Home medications: home medication list seen and reviewed Home Medications: Ibuprofen [Motrin (*)] 200 - 600 mg PO Q4-6PRN PRN 04/12/17 [Last Taken 04/06/17 ] Losartan Potassium [Cozaar] 100 mg PO HS 04/12/17 [Last Taken 04/12/17] Melatonin [Melatonin 5 mg] 5 mg PO HS 04/12/17 [Last Taken 04/12/17] - NPO status NPO Status: no food or drink >8 hours NPO Since - Liquids (Date): 04/12/17 NPO Since - Liquids (Time): 21:00 NPO Since - Solids (Date): 04/12/17 NPO Since - Solids (Time): 11:00 - Anes Hx Anes Hx: no prior problems - Smoking Hx Smoking Status: Never smoked ANE Labs/Vital Signs - Vital Signs Blood Pressure: 160/110 Heart Rate: 63 Respiratory Rate: 18 O2 Sat (%): 98 Height: 175.26 cm Weight: 77.111 kg ANE Physical Exam - Airway Neck exam: FROM Mallampati Score: Class 1 Mouth exam: normal dental/mouth exam - Pulmonary Pulmonary: no respiratory distress - Cardiovascular Cardiovascular: regular rate and rhythym - ASA Status ASA Status: III ANE Anesthesia Plan Anesthesia Plan: general endotracheal anesthesia, epidural Lines/Monitors: arterial line Urgent/Emergent Case: Shimon monroe completed preop but documented later for safe timely pt care
[2017-04-13] MEDS ORDERED: fentaNYL 100 MCG/2 ML INJ ONE ×3 (13:40→14:45)
[2017-04-13] MEDS ORDERED: HYDROmorphONE/DILAUDID 1 MG/ML INJ ONE ×2 (13:40→14:46)
[2017-04-13] MEDS: fentaNYL 100 MCG/2 ML INJ IVP PRN ×5 (13:42→15:13)
[2017-04-13] MEDS: HYDROmorph 10MCG/ML&BUP 0.1% in 100ML NS EP SCH ×2 (13:55→22:25)
[2017-04-13] MEDS: HYDROmorphONE/DILAUDID 1 MG/ML INJ IVP PRN ×6 (13:57→15:30)
--- NOTE | 2017-04-13 13:59 | POSTOPPROG ---
Post Op Note Date of Operation: 04/13/17 Surgeon: Padmini Palacio (# [id number]) Anesthesia: GET(General Endotracheal) Pre-op Diagnosis: Right renal mass Post-op Diagnosis: Right renal mass Procedure: Open right radical nephrectomy Findings: See op note Inf/Abcess present in the surg proc area at time of surgery?: No EBL: 50-100 (50 cc) Complications: None Specimen(s): Right kidney
[2017-04-13] MEDS: LOSARTAN POTASSIUM 50 MG TAB PO SCH (19:53)
[2017-04-13] MEDS ORDERED: NON-FORMULARY NEW DRUG (Losartan Potassium [Cozaar] 100 MG) PO SCH (21:00)
--- NOTE | 2017-04-13 21:41 | GOP ---
[f rep st] OPERATIVE REPORT DATE OF OPERATION: 04/13/2017 SURGEON: Padmini Palacio MD LAB AID: Shyanne Roberts CFA. ANESTHESIA: General endotracheal with epidural. PREOPERATIVE DIAGNOSIS: Abnormal large right renal mass. POSTOPERATIVE DIAGNOSIS: Abnormal large right renal mass. PROCEDURE PERFORMED: Open right radical nephrectomy and partial ureterectomy. FINDINGS: Grossly organ confined right renal mass. SPECIMENS: Right kidney with tumor. ESTIMATED BLOOD LOSS: Approximately 50 cc. INDICATIONS: This gentleman was recently found to have an abnormal large right renal mass that appears very worrisome for malignancy. It was recommended that he undergo intraoperative management at this time. The mass was deemed to be too large to allow for safe and successful laparoscopic nephrectomy. The indications for the procedures, as well as potential risks and complications, were discussed with the patient preoperatively. He appeared to understand, his questions were answered, and he wished to proceed. Written informed surgical consent was thereafter obtained. DESCRIPTION OF PROCEDURE: The patient was brought to the operating room after being administered an epidural anesthetic in the preoperative area by Anesthesia. He was carefully placed in the supine position on the operating room table. He was then administered general endotracheal anesthesia successfully. He was placed over the break of the table, and the table was flexed approximately 15 degrees. A Navarro catheter was placed to gravity drainage without complication. The abdomen was sterilely prepped and draped in standard fashion utilizing Ioban. A right subcostal incision was made with a scalpel and carried through the anterior abdominal wall with electrocautery. The intraabdominal cavity was entered. The falciform ligament medially was partially ligated with a LigaSure and divided for further surgical site exposure. Adhesions between the anterior abdominal wall and the top of the liver were ligated with LigaSure, as well, to prevent an injury to the liver. The Omni retractor was used throughout the case. The colon was mobilized off the anterior aspect of the kidney medially across the midline. The underlying kidney and Gerota fascia were identified. There was a fair amount of inflammation medially along the lateral aspect of the vena cava on the right side. I carefully dissected through this tissue, below where I perceived to be the insertion of the renal vein, with a combination of Metzenbaum scissors and LigaSure. Further caudally, the ureter was identified and mobilized but not yet divided. The gonadal vein was identified and left unharmed throughout the procedure. I continued my dissection somewhat posteriorly and laterally behind the kidney. At this point , I then was able to identify the hilum to the kidney. I was able to dissect below it and above it carefully with Metzenbaum scissors. Once I was able to identify the hilum and obtain access above and below, a 60 mm linear vascular stapler was used to ligate the hilum along the dissected region. Before doing so, the renal vein and insertion into the vena cava was carefully inspected. No tumor thrombus was identified. Once the hilum was ligated, I was able to identify the adrenal gland and spare it from resection along the anteromedial aspect of the upper pole of the kidney. The vascular stapler was used to ligate the tissue connecting the adrenal gland to the kidney. I then incised the peritoneum above the level of the kidney and scored it with cautery. I then carefully and systematically dissected and divided the hepatorenal ligament from medial to lateral. This was performed using cautery and LigaSure. Any remaining posterior attachments were then divided, taking care to ensure that Gerota fascia was not violated. The kidney specimen was then completely free and removed at this point. There was no obvious extrafascial cancerous process extending beyond Gerota's. The hilum was then carefully inspected, as was the lateral aspect of the vena cava. The anterior surface of the vena cava and interaortocaval regions were inspected. No obvious adenopathy was appreciated. Therefore, no further lymphadenectomy was performed. The renal fossa was then carefully inspected and no bleeding was noted. The fossa was irrigated thoroughly with sterile water. The retractors utilized with the Omni were then removed 1 by 1. The liver was noted to be unharmed. The intestinal contents and great vessels were unharmed. The flex was then taken out of the table. The incision was closed in 3 layers, with the inner 2 layers utilizing running 0-Vicryl suture. The deepest layer approximated the posterior rectus fascia and peritoneum medially, then was continued laterally by incorporating the transversalis fascia and internal oblique fascia. The middle layer utilized a running 0-Vicryl suture to approximate the anterior rectus fascia medially, and this was run continuously with the external oblique aponeurosis laterally. The subcutaneous tissue was then irrigated and cauterized for hemostasis as necessary. The skin edges were reapproximated with skin angeles. The wound was dressed with Telfa, 4 x 4 gauze , and Hypafix tape. The patient was then awakened, extubated, transferred to his bed, then taken to the recovery room. He tolerated the procedure well overall. COMPLICATIONS: None. COMPLICATIONS: None. DISPOSITION: He was transferred to the recovery room in stable condition. He will be admitted for postoperative care. Copy requested to: Dr. Sharon Keenan /[id number]/MODL MTDD
[2017-04-13] MEDS: MELATONIN 3 MG TAB PO SCH (22:59)
[2017-04-14] MEDS: D5W 1/2 NS 1,000 ML IV SCH ×3 (03:37→21:10)
[2017-04-14 05:24] LABS: HEMATOCRIT 34.7 % (40.0-51.0); HEMOGLOBIN 11.6 g/dL (13.7-17.5); MEAN CELL HEMOGLOBIN 31.2 pg (27.9-34.1); MEAN CELL HEMOGLOBIN CONCENTR. 33.4 g/dL (32.4-36.7); MEAN CELL VOLUME 93.3 fL (81.5-99.8); RED BLOOD CELL COUNT 3.72 10^6/uL (4.40-6.38); RED CELL DISTRIBUTION WIDTH 12.3 % (11.5-15.2)
[2017-04-14 05:36] LABS: ANION GAP 11 mEq/L (8-16); CALCIUM 8.3 mg/dL (8.5-10.4); CARBON DIOXIDE 24 mEq/l (22-31); CHLORIDE 107 mEq/L (97-110); CREATININE 1.1 mg/dL (0.7-1.3); GLOMERULAR FILTRATION RATE > 60; GLUCOSE 121 mg/dL (70-100); POTASSIUM 3.8 mEq/L (3.5-5.2); SODIUM 142 mEq/L (134-144)
[2017-04-14] MEDS: HYDROmorph 10MCG/ML&BUP 0.1% in 100ML NS EP SCH ×3 (06:42→23:50)
--- NOTE | 2017-04-14 11:38 | ASMTCMCOM ---
CM Note CM Note Notes: Reviewed chart and discussed w/RN. Pt is s/p open R radical nephrectomy and partial ureterectomy. Pt normall independant. No dc needs anticipated. Pt has very supportive girlfriend. CM will follow for any needs/changes. Date Signed: 04/14/2017 11:37 AM Electronically Signed By:Nuzhat Langford RN
[2017-04-14] MEDS: REGARDING ANTICOAG MISC SCH (14:01)
[2017-04-14] MEDS: DC NARCS MISC SCH (14:01)
--- NOTE | 2017-04-14 14:04 | SOAPPROG ---
SOAP Progress Note Assessment/Plan: Assessment: POD 1 s/p open right radical nephrectomy - doing well. Plan: 1. Continue postop care, ambulation. 2. Advance to regular diet tomorrow. 3. Continue epidural for pain control. 4. Continue Navarro until epidural is removed. Subjective: Complained of lower abdominal discomfort which resolved upon ambulation and sitting up. Tolerating CLD well. Objective: Vital Signs Temp Pulse Resp BP Pulse Ox 36.6 C 67 16 137/78 H 98 04/14/17 13:03 04/14/17 13:03 04/14/17 13:03 04/14/17 13:03 04/14/17 13:03 Laboratory Results 04/14/17 04:38 04/14/17 04:38 04/13/17 04/14/17 04/15/17 05:59 05:59 05:59 Intake Total 2600 Output Total 700 250 Balance 1900 -250 Physical Exam - Physical Exam General Appearance: WD/WN, alert, no apparent distress Abdomen: soft, other (bandages c/d/i; mild distention) Male Genitalia: other (urine clear via Navarro) Skin: normal color, warm/dry Extremities: non-tender, normal inspection Neuro/Psych: alert, normal mood/affect, oriented x 3 ICD10 Worksheet Patient Problems: Problems Problem Status Onset Renal cancer Acute
--- NOTE | 2017-04-14 14:46 | SOAPPROG ---
SOAP Progress Note Assessment/Plan: Assessment: 71M POD#1 s/p open radical nephrectomy with T8-9 epidural running bupivacaine 0.1%+dilaudid 10mcg/ml at 10ml/hr with good pain control. Plan: Continue epidural analgesia until able to tolerate PO pain medications; will follow-up tomorrow to reassess. 04/14/17 14:42 Subjective: Pain well controlled with epidural analgesia. Baseline 3-4/10 in severity, located at right subcostal region with radiation into back. Improved with changing position and ambulation. Worsens with coughing. Denies weakness, paresthesias, nausea. Objective: Vital Signs Temp Pulse Resp BP Pulse Ox 36.6 C 67 16 137/78 H 98 04/14/17 13:03 04/14/17 13:03 04/14/17 13:03 04/14/17 13:03 04/14/17 13:03 Laboratory Results 04/14/17 04:38 04/14/17 04:38 04/13/17 04/14/17 04/15/17 05:59 05:59 05:59 Intake Total 2600 Output Total 700 250 Balance 1900 -250 Physical Exam - Physical Exam General Appearance: alert, no apparent distress EENT: PERRL/EOMI Respiratory: No respiratory distress, No accessory muscle use Cardiac/Chest: regular rate, rhythm Back: Normal inspection (epidural insertion site c/d/i; nontender; catheter depth 9cm at skin) Skin: normal color, warm/dry Extremities: normal range of motion Neuro/Psych: no motor/sensory deficits, No motor weakness ICD10 Worksheet Patient Problems: Problems Problem Status Onset Renal cancer Acute
[2017-04-14] MEDS: LOSARTAN POTASSIUM 50 MG TAB PO SCH (21:08)
[2017-04-14] MEDS: MELATONIN 3 MG TAB PO SCH (21:08)
[2017-04-15] MEDS: D5W 1/2 NS 1,000 ML IV SCH ×3 (04:50→22:50)
[2017-04-15 05:30] LABS: HEMATOCRIT 35.1 % (40.0-51.0); HEMOGLOBIN 11.7 g/dL (13.7-17.5); MEAN CELL HEMOGLOBIN 31.2 pg (27.9-34.1); MEAN CELL HEMOGLOBIN CONCENTR. 33.3 g/dL (32.4-36.7); MEAN CELL VOLUME 93.6 fL (81.5-99.8); RED BLOOD CELL COUNT 3.75 10^6/uL (4.40-6.38); RED CELL DISTRIBUTION WIDTH 12.2 % (11.5-15.2)
[2017-04-15 05:42] LABS: ANION GAP 9 mEq/L (8-16); CALCIUM 8.1 mg/dL (8.5-10.4); CARBON DIOXIDE 23 mEq/l (22-31); CHLORIDE 105 mEq/L (97-110); CREATININE 1.1 mg/dL (0.7-1.3); GLOMERULAR FILTRATION RATE > 60; GLUCOSE 109 mg/dL (70-100); POTASSIUM 3.6 mEq/L (3.5-5.2); SODIUM 137 mEq/L (134-144)
[2017-04-15] MEDS: HYDROmorph 10MCG/ML&BUP 0.1% in 100ML NS EP SCH (08:14)
[2017-04-15] MEDS: DC NARCS MISC SCH (09:24)
[2017-04-15] MEDS: REGARDING ANTICOAG MISC SCH (09:24)
--- NOTE | 2017-04-15 10:55 | SOAPPROG ---
SOAP Progress Note Assessment/Plan: Assessment: POD 2 s/p open right radical nephrectomy - doing well. Plan: 1. Continue postop care, ambulation. 2. Advanced to regular diet this AM. 3. Anesthesia to d/c epidural & will switch to oral narcotics. 4. Will d/c Navarro 2 hours until epidural is removed. Subjective: No complaints. Feels better today. Tolerated small amount of regular diet this AM. No flatus yet. Objective: Vital Signs Temp Pulse Resp BP Pulse Ox 37.2 C 86 17 134/98 H 94 04/15/17 10:10 04/15/17 10:10 04/15/17 10:10 04/15/17 10:10 04/15/17 10:10 Laboratory Results 04/15/17 04:47 04/15/17 04:47 04/14/17 04/15/17 04/16/17 05:59 05:59 05:59 Intake Total 2600 2050 Output Total 700 875 Balance 1900 1175 Physical Exam - Physical Exam General Appearance: WD/WN, alert, no apparent distress Abdomen: soft, distended (mildly), other (bandages still intact over incision) Skin: normal color, warm/dry Extremities: non-tender, normal inspection Neuro/Psych: alert, normal mood/affect, oriented x 3 ICD10 Worksheet Patient Problems: Problems Problem Status Onset Renal cancer Acute
[2017-04-15] MEDS ORDERED: HYDROmorphONE/DILAUDID 1 MG/ML INJ IVP PRN (10:57)
[2017-04-15] MEDS: OXYCODONE/APAP 5/325 TAB PO PRN ×3 (11:25→22:46)
[2017-04-15] MEDS ORDERED: HYDROmorphone HCL/NS/PF 0.4 MG/2 ML SYR IVP PRN (15:13)
[2017-04-15] MEDS: LOSARTAN POTASSIUM 50 MG TAB PO SCH (20:20)
[2017-04-15] MEDS: MELATONIN 3 MG TAB PO SCH (22:46)
[2017-04-16] MEDS: REGARDING ANTICOAG MISC SCH (10:23)
[2017-04-16] MEDS: DC NARCS MISC SCH (10:23)
--- NOTE | 2017-04-16 10:32 | SOAPPROG ---
SOAP Progress Note Assessment/Plan: Assessment: Renal cancer Acute POD# 3 good I and O, Hct down from initial visit late March, consider repeat. Plan: Progressing and plan per Pia 04/16/17 10:30 Subjective: ok, no gas and mild bloating Objective: Vital Signs Temp Pulse Resp BP Pulse Ox 36.7 C 72 14 155/97 H 94 04/16/17 07:11 04/16/17 07:11 04/16/17 07:11 04/16/17 07:11 04/16/17 07:11 Laboratory Results 04/15/17 04:47 04/15/17 04:47 04/15/17 04/16/17 04/17/17 05:59 05:59 05:59 Intake Total 2050 2600 Output Total 875 1000 Balance 1175 1600 Physical Exam - Physical Exam General Appearance: alert Neck: supple, normal inspection Respiratory: No respiratory distress Cardiac/Chest: regular rate, rhythm Abdomen: soft, distended, No guarding, No rebound Back: No CVA tenderness Skin: warm/dry Extremities: No calf tenderness, No Jemma's sign Neuro/Psych: alert, oriented x 3 ICD10 Worksheet Patient Problems: Problems Problem Status Onset Renal cancer Acute
[2017-04-16] MEDS ORDERED: METOCLOPRAMIDE 10 MG/2 ML VIAL IVP PRN (16:31)
--- NOTE | 2017-04-16 18:14 | GCON ---
[f rep st] CONSULTATION INTERNAL MEDICINE CONSULTATION. DATE OF CONSULTATION: 04/16/2017 REFERRING PHYSICIAN: Ricco Matute MD REASON FOR CONSULTATION: Hypertension. HISTORY OF PRESENT ILLNESS: This is a 71-year-old male who was recently diagnosed with a large right renal mass. This was resected using open approach on 04/13/2017. Apparently, a couple days prior t o that, he was diagnosed with hypertension and was started on losartan. He had been on Losartan for a couple days prior to admission and since his surgery. His blood pressures have been ranging in the 140-160 range, though immediately postoperative it was fairly low. The patient is trying not to jeane e as much pain medicine due to his ileus. He says his pain is tolerable. He does have some gas pain s. He is not passing much gas. He is ambulating quite frequently. He denies any shortness of breat h or chest pain. REVIEW OF SYSTEMS: A 10-point review of systems was obtained, and other than stated was negative. PAST MEDICAL HISTORY: 1. Right renal mass, suspicious for cancer, status post resection. 2. New diagnosis of hypertension. PAST SURGICAL HISTORY: Pectus excavatum surgery. SOCIAL HISTORY: Occasional marijuana. No tobacco or alcohol. FAMILY HISTORY: No cancer. PHYSICAL EXAM: VITAL SIGNS: Afebrile. Blood pressure is 160/103, heart rate 95, oxygen saturation 94% on room air. GENERAL: No apparent distress. HEENT: Nonicteric sclerae. Extraocular movements intact. Moist mucous membranes. NECK: Supple. No thyromegaly. LUNGS: Good effort. Clear to au scultation bilaterally. CARDIOVASCULAR: Regular rhythm. No murmurs, gallops. ABDOMEN: Large incis ion on the right with [place], clean and dry. Decreased bowel sounds. Soft, nontender. EXTREMITIES : No clubbing, cyanosis, or edema. SKIN: Without rash. Dry and intact. NEUROLOGIC: Alert and or iented x3. Moving all 4 extremities equally. PSYCHIATRIC: Normal affect. LABS: White blood cell count slightly elevated at 11, hemoglobin 11. Creatinine is 1.1. ASSESSMENT: This is a 71-year-old male with recent renal mass, status post resection 2 days ago, wit h hypertension. PLAN: 1. Hypertension: The patient did not have a history of this prior to his admission. In fact, in No vember, his admitting blood pressure was 206/96. There is some suspicion that the renal vein was inv olved in the mass with a lack of excretion of the right kidney. I am wondering if there might be aundrea e disruption of blood flow to the kidney, causing some increased renin production. The kidney is out ; this may this may improve. At this point, his blood pressures are mostly in the 160 range. I woul d probably just keep him on the losartan currently and will watch his blood pressure closely. 2. Recent surgery for right renal mass. Pathology still pending. 3. Postoperative ileus. The patient is continuing to ambulate. 4. DVT prophylaxis. The patient is ambulating significantly. If he does stay longer than tomorrow, probably would consider pharmacological DVT prophylaxis but will hold off today. Thank you for this consultation. We will follow along with you. /[id number]/MODL
[2017-04-16] MEDS: LOSARTAN POTASSIUM 50 MG TAB PO SCH (20:46)
[2017-04-16] MEDS: MELATONIN 3 MG TAB PO SCH (22:19)
[2017-04-16] MEDS: D5W 1/2 NS 1,000 ML IV SCH (22:20)
[2017-04-17 04:53] LABS: % IMMATURE GRANULYOCYTES 0.4 % (0.0-1.1); ABSOLUTE IMMATURE GRANULOCYTES 0.03 10^3/uL (0.00-0.10); ADD DIFF? NO; ADD MORPH? NO; ADD SCAN? NO; ATYPICAL LYMPHOCYTE FLAG 0 (0-99); FRAGMENT RBC FLAG 0 (0-99); HEMATOCRIT 34.8 % (40.0-51.0); HEMOGLOBIN 12.1 g/dL (13.7-17.5); LEFT SHIFT FLG 0 (0-99); LIPEMIA HEMOLYSIS FLAG 90 (0-99); MEAN CELL HEMOGLOBIN 31.7 pg (27.9-34.1); MEAN CELL HEMOGLOBIN CONCENTR. 34.8 g/dL (32.4-36.7); MEAN CELL VOLUME 91.1 fL (81.5-99.8); MEAN PLATELET VOLUME 9.8 fL (8.7-11.7); PLATELET CLUMPS FLAG 10 (0-99); PLATELET COUNT 192 10^3/uL (150-400); RED BLOOD CELL COUNT 3.82 10^6/uL (4.40-6.38); RED CELL DISTRIBUTION WIDTH 12.1 % (11.5-15.2)
[2017-04-17 05:04] LABS: ANION GAP 8 mEq/L (8-16); CALCIUM 8.7 mg/dL (8.5-10.4); CARBON DIOXIDE 29 mEq/l (22-31); CHLORIDE 102 mEq/L (97-110); CREATININE 1.2 mg/dL (0.7-1.3); GLOMERULAR FILTRATION RATE 60; GLUCOSE 98 mg/dL (70-100); POTASSIUM 3.5 mEq/L (3.5-5.2); SODIUM 139 mEq/L (134-144)
[2017-04-17] MEDS ORDERED: amLODIPine BESYLATE 5 MG TAB PO SCH (11:00)
--- NOTE | 2017-04-17 11:05 | SOAPPROG ---
SOAP Progress Note Assessment/Plan: Assessment: 1. POD 4 s/p open right radical nephrectomy - doing well. 2. Poorly controlled HTN Plan: 1. Ready for discharge from standpoint. BP is the only issue keeping him in hospital a this point. 2. Discussed BP issues w/ Dr. Duron from hospitalist service. She will be making adjustments. Subjective: No complaints. Tolerating regular diet, has had some flatus, and ambulating without assistance. Hasn't need any narcotics for pain control for about "40 hours". Objective: Vital Signs Temp Pulse Resp BP Pulse Ox 36.8 C 87 28 H 174/120 H 91 L 04/17/17 08:00 04/17/17 08:00 04/17/17 08:00 04/17/17 08:00 04/17/17 08:00 Laboratory Results 04/17/17 04:28 04/17/17 04:28 04/16/17 04/17/17 04/18/17 05:59 05:59 05:59 Intake Total 2600 1650 Output Total 1000 450 Balance 1600 1200 Physical Exam - Physical Exam General Appearance: WD/WN, alert, no apparent distress Abdomen: non-tender, soft, distended (mildly), other (incision c/d/i) Skin: normal color, warm/dry Extremities: non-tender, normal inspection Neuro/Psych: alert, normal mood/affect, oriented x 3 ICD10 Worksheet Patient Problems: Problems Problem Status Onset Renal cancer Acute
--- NOTE | 2017-04-17 11:43 | HOSPPROG ---
Hospitalist Progress Note Assessment/Plan: Right renal mass s/p nephrectomy - will f/u with urology and oncology regarding path and further treatment options. Hypertension - sub-optimal control. Cont Losartan. Add Norvasc and up-titrate as indicated. Heart murmur - check echo Post-op ileus - improving with ambulation Full code DVT PPLX - Lovenox Dispo - cont inpt. Will continue to follow for hypertension management. Subjective: Pt feels pretty good. Some abdominal distention, +flatus. Ambulating. No fevers. No N/V. No CP or SOB. Objective: Vital Signs Temp Pulse Resp BP Pulse Ox 36.8 C 87 28 H 174/120 H 91 L 04/17/17 08:00 04/17/17 08:00 04/17/17 08:00 04/17/17 08:00 04/17/17 08:00 Laboratory Results 04/17/17 04:28 04/17/17 04:28 04/16/17 04/17/17 04/18/17 05:59 05:59 05:59 Intake Total 2600 1650 Output Total 1000 450 Balance 1600 1200 - Physical Exam Constitutional: no apparent distress Eyes: PERRL Ears, Nose, Mouth, Throat: moist mucous membranes Cardiovascular: regular rate and rhythym, systolic murmur Respiratory: no respiratory distress, clear to auscultation Gastrointestinal: normoactive bowel sounds, soft, non-tender abdomen, distension , other (RUQ incision c/d/i) Skin: warm Musculoskeletal: full muscle strength Neurologic: AAOx3 Psychiatric: interacting appropriately ICD10 Worksheet Patient Problems: Problems Problem Status Onset Renal cancer Acute
[2017-04-17] MEDS ORDERED: hydrALAZINE 25 MG TAB PO PRN (14:43)
[2017-04-17] MEDS: ENOXAPARIN 40 MG/0.4 ML SYR SC SCH (17:55)
[2017-04-17] MEDS: LOSARTAN POTASSIUM 50 MG TAB PO SCH (21:07)
[2017-04-17] MEDS: MELATONIN 3 MG TAB PO SCH (22:29)
[2017-04-18] MEDS ORDERED: amLODIPine BESYLATE 5 MG TAB PO SCH (08:00)
[2017-04-18 09:06] VITALS: PULSE 83; RESP 17; TEMP 98.1; O2SAT 93
[2017-04-18] MEDS: ENOXAPARIN 40 MG/0.4 ML SYR SC SCH (09:07)
[2017-04-18] MEDS: amLODIPine BESYLATE 5 MG TAB PO SCH ×2 (09:08→10:08)
--- NOTE | 2017-04-18 10:02 | ECHO ---
[email or web address] [address] [address] Main: [phone] Fax: Transthoracic Echocardiogram Name: MARGARET DANIEL MR#: [id number] Study Date: 04/17/2017 Study Time: 11:39 AM Date of : 1945 Age: 71 year(s) Height: 175.3 cm (69 in.) Weight: 77.11 kg (170 lb.) BSA: 1.93 m2 Gender: Male Examination: Echo Indication: Heart murmur/hypertension/ post op kidney ressection Image Quality: Contrast: Requested by: Radha Duron BP: 174 mmHg/120 mmHg Heart Rate: Rhythm: Indication: Heart murmur/hypertension/ post op kidney ressection Procedure Staff Alternative Financing Specialist: Yokasta Rangel Physician: Requesting Provider: Conclusions: Normal size left ventricle. Mild concentric LV hypertrophy. Global hypercontractility of the left ventricle. The ejection fraction is estimated to be 70-75 %. Trivial aortic valve regurgitation. Trivial tricuspid valve regurgitation. No pericardial effusion. Measurements: Chambers Valvular Assessment AV/MV Valvular Assessment TV/PV Normal Normal Normal Name Value Range Name Value Range Name Value Range Ao Tara (MM): 3.5 cm (2.2 cm-3.7 AV Vmax: 1.34 m/s (1 m/s-1.7 cm) m/s) LVDd (2D): 4.3 cm (4.2 cm-5.9 AV maxP mmHg ( - ) cm) AV meanP mmHg ( - ) EF Range: 70-75 % MV E Vmax: 0.71 m/s ( - ) MV A Vmax: 0.87 m/s ( - ) MV E/A: 0.82 ( - ) Continued Measurements: Chambers Valvular Assessment AV/MV Name Value Name Value LADs: 2.9 cm MV E/E' Septal: 11.50 MV E/E' Lateral: 10.60 Patient: MARGARET DANIEL Study Date: 04/17/2017 Page 1 of 2 11:39 AM Findings: Left Ventricle: Normal size left ventricle. Mild concentric LV hypertrophy. Global hypercontractility of the left ventricle. The ejection fraction is estimated to be 70-75 %. Right Ventricle: Normal size right ventricle. Left Atrium: The left atrium is normal in size. Right Atrium: The right atrium is normal in size. Mitral Valve: The mitral valve is normal in appearance. Aortic Valve: The aortic valve is normal in appearance. Trivial aortic valve regurgitation. Tricuspid Valve: The tricuspid valve appears normal. Trivial tricuspid valve regurgitation. Pulmonic Valve: Pulmonary valve not well visualized. Pericardium: No pericardial effusion. (No Signature Object) Patient: MARGARET DANIEL Study Date: 04/17/2017 Page 2 of 2 11:39 AM [id number]
[2017-04-18] MEDS ORDERED: amLODIPine BESYLATE 5 MG TAB PO ONE (11:02)
--- NOTE | 2017-04-18 11:29 | HOSPPROG ---
Hospitalist Progress Note Assessment/Plan: Right renal mass s/p nephrectomy - will f/u with urology and oncology regarding path and further treatment options. Hypertension - Improved with addition of norvasc. Will give additional dose today and he is advised to f/u with his PCP in 1-2 weeks. Heart murmur - echo with nl valves Post-op ileus - improved Full code DVT PPLX - Lovenox Dispo - D/C per urology service. I think he is safe for discharge with close PCP f/u regarding his blood pressure Subjective: Pt feels ok. No CP or SOB. No fevers/chill. Ambulating in halls. Objective: Vital Signs Temp Pulse Resp BP Pulse Ox 36.7 C 83 17 150/92 H 93 04/18/17 08:55 04/18/17 08:55 04/18/17 08:55 04/18/17 10:08 04/18/17 08:55 Laboratory Results 04/17/17 04:28 04/17/17 04:28 04/17/17 04/18/17 04/19/17 05:59 05:59 05:59 Intake Total 1650 800 Output Total 450 52 Balance 1200 748 - Physical Exam Constitutional: no apparent distress Eyes: PERRL Ears, Nose, Mouth, Throat: moist mucous membranes Cardiovascular: regular rate and rhythym, no murmur, rub, or gallop Respiratory: no respiratory distress, clear to auscultation Gastrointestinal: normoactive bowel sounds, soft, non-tender abdomen, other ( RUQ incision c/d/i) Skin: warm Musculoskeletal: full muscle strength Neurologic: AAOx3 Psychiatric: interacting appropriately ICD10 Worksheet Patient Problems: Problems Problem Status Onset Renal cancer Acute
[2017-04-18 12:33] VITALS: BP 144/92
--- NOTE | 2017-04-18 12:52 | SOAPPROG ---
SOAP Progress Note Assessment/Plan: Assessment: 1. POD 5 s/p open right radical nephrectomy for Stage T3 renal cell CA - doing well. Pathology results reviewed today. 2. Poorly controlled HTN: improved with addition of Norvasc 10 mg daily. Appreciate hospitalist assistance. Plan: Discharge. (# [id number]) Subjective: No complaints. Objective: Vital Signs Temp Pulse Resp BP Pulse Ox 36.7 C 83 17 144/92 H 93 04/18/17 08:55 04/18/17 08:55 04/18/17 08:55 04/18/17 12:32 04/18/17 08:55 Laboratory Results 04/17/17 04:28 04/17/17 04:28 04/17/17 04/18/17 04/19/17 05:59 05:59 05:59 Intake Total 1650 800 Output Total 450 52 Balance 1200 748 Physical Exam - Physical Exam General Appearance: WD/WN, alert, no apparent distress Abdomen: non-tender, soft, distended (mildly), other (incision c/d/i) Skin: normal color, warm/dry Extremities: non-tender, normal inspection Neuro/Psych: alert, normal mood/affect, oriented x 3 ICD10 Worksheet Patient Problems: Problems Problem Status Onset Renal cancer Acute
--- NOTE | 2017-04-18 13:56 | GDS ---
[f rep st] DISCHARGE SUMMARY ADMITTING DIAGNOSIS: 1. Large abnormal right renal mass. 2. Hypertension. POSTOPERATIVE DIAGNOSES: 1. Stage T3a right renal cell carcinoma. 2. Hypertension. PROCEDURES: Open right radical nephrectomy on 04/13/2017. HOSPITAL COURSE: Refer to the operative report for details regarding the procedure. Postoperatively , the patient did well overall. He had an epidural catheter in place for the 1st couple of days post operatively, which controlled his pain well. He was then eventually transitioned over to oral pain m edication, which he again tolerated well with good pain control. He was started on a regular diet by postoperative day 2, and his oral intake gradually increased during the remainder of the hospitaliza tion. He was afebrile with normal vital signs with exception of increasing blood pressure during the postoperative period. He was started on Norvasc 5 mg, then increased to 10 mg daily, as directed by the hospitalist service, with subsequent improvement in his blood pressure thereafter. His postoper ative laboratory work was stable. His postoperative physical exam was also unremarkable with an inci ellyn that was healing appropriately. Pathology results revealed stage T3a right renal cell carcinoma with focal capsular extension and perla al vein invasion. These pathology results were reviewed with the patient prior to discharge. He is being discharged on his regular medications as well as Norvasc 10 mg daily and oxycodone 5 mg p.r.n. pain. Activity restriction instructions have been provided. The patient has been instructed to retu rn to my office later this week for staple removal, follow up with Dr. Arango's office in 1-2 weeks for continued close monitoring of his blood pressure, and follow up with Dr. Hernandez of [facility] for further discussion regarding possible initiation of adjuvant cancer therapy. /[id number]/MODL
[2017-04-18] MEDS ORDERED: PNEUMOC 13-VAL CONJ-DIP CRM/PF 0.5 ML SYR IM ONE (14:53)
[2017-04-19] MEDS ORDERED: amLODIPine BESYLATE 5 MG TAB PO SCH (09:00)
--- NOTE | 2017-04-19 12:57 | ASDISCHSUM ---
Discharge Information Plan Status: Medically Cleared to Leave: Discharge Date:04/18/2017 03:57 PM CM D/C Disposition: ADT D/C Disposition:Home, Routine, Self-Care Projected Discharge Date:04/18/2017 03:57 PM Transportation at D/C: Discharge Delay Reason: Follow-Up Date:04/18/2017 03:57 PM Discharge Slot: Final Diagnosis: Placement Information Patient Contact Information Contact Name:TANIRICARDA Relationship:Other Address: Work Phone: City: [facility] Phone: [facility]/Zip Code: Email: Financial Information Financial Class: Primary Plan Desc:MEDICARE INPATIENT Primary Plan Number:[id number] Secondary Plan Desc:RUBIA PPO [employer] Secondary Plan Number:[id number] Assessment Information [facility] CM Progress Note CM Note CM Note Notes: Reviewed chart and discussed w/RN. Pt is s/p open R radical nephrectomy and partial ureterectomy. Pt normall independant. No dc needs anticipated. Pt has very supportive girlfriend. CM will follow for any needs/changes. Date Signed: 04/14/2017 11:37 AM Electronically Signed By:Nuzhat Langford RN Intervention Information Intervention Type:*IM-Signed Date of Service:04/18/2017 03:46 PM Patient Type:Inpatient Staff Member:Wilma Stein Hours: Discipline: Severity: Comment:
== END 2017-04-18 15:57 | disposition home or self-care (01) | DRG 657 ==
LOC: F1N 04-13 09:43
PROVIDERS: ADMIT Specialist; ATTEND Specialist
PROC: 0TT00ZZ Resection of Right Kidney, Open Approach (ICD-10-PCS; principal; 2017-04-13 11:30)
PROC: 0TB60ZZ Excision of Right Ureter, Open Approach (ICD-10-PCS; principal; 2017-04-13 11:30)
DX: C64.1 Malignant neoplasm of right kidney, except renal pelvis (principal); I10 Essential (primary) hypertension; K56.7 Ileus, unspecified; R01.1 Cardiac murmur, unspecified; Z23 Encounter for immunization
CPT/HCPCS: G0009; J0690; J1170; J1650; J2250; J2405; J2704; J3010

== ENCOUNTER → 2018-05-31 | Outpatient (CLI) | payer OTHER ==
[~2018-05-31] MED LIST: GADOBUTROL 10 ML VIAL IVP ONE
== END ==
LOC: FIMAGING 15:51
PROVIDERS: ATTEND Internal Medicine Hematology & Oncology
DX: G52.9 Cranial nerve disorder, unspecified (principal); Z85.528 Personal history of other malignant neoplasm of kidney; Z90.5 Acquired absence of kidney
CPT/HCPCS: 70543; A9585